=== PATIENT | female | born 1960 | race Two or more races ===

== ENCOUNTER 2017-02-09 13:20 | Emergency (ER) | payer SELFPAY ==
[~2017-02-09] VITALS: Ht 152.4 cm; Wt 84.8 kg
[~2017-02-09 13:20] MED LIST: GLIP5TAB10 PO; LIPITOR80 MG PO; LISI-338 PO
[2017-02-09] MEDS ORDERED: HYDROmorphone 2 MG/ML VIAL IV ONE (14:00)
[2017-02-09] MEDS ORDERED: KETOROLAC TROMETHAMINE 30 MG/ML INJ. IV ONE (14:00)
[2017-02-09 14:39] LABS: BASO # 0.1 x10^3/uL (0.0-0.2); BASO % 1 % (0-3); EOS % 3 % (0-3); HEMATOCRIT 39.5 % (36.0-47.0); HEMOGLOBIN 13.2 g/dL (12.0-15.5); LYMPH # 2.5 x10^3/uL (1.0-4.8); LYMPH % 23 % (24-48); MEAN CORPUSCULAR HEMOGLOBIN 30 pg (25-35); MEAN CORPUSCULAR HGB CONC 34 g/dL (31-37); MEAN CORPUSCULAR VOLUME 88 fL (79-100); MONO % 6 % (0-9); NEUT % 67 % (31-73); PLATELET COUNT 292 x10^3/uL (140-400); RED BLOOD COUNT 4.46 x10^6/uL (3.50-5.40); RED CELL DISTRIBUTION WIDTH 13.6 % (11.5-14.5); WHITE BLOOD COUNT 10.8 x10^3/uL (4.0-11.0)
--- NOTE | 2017-02-09 14:47 | RAD ---
CT of the head without contrast, 02/09/2017: History: Headache The ventricles are within normal limits in size. There is no shift of the midline structures. There is no evidence of acute intracranial hemorrhage or mass effect. The visualized paranasal sinuses are clear. IMPRESSION: No acute intracranial abnormality is detected. PQRS Compliance Statement: One or more of the following individualized dose reduction techniques were utilized for this examination: 1. Automated exposure control 2. Adjustment of the mA and/or kV according to patient size 3. Use of iterative reconstruction technique
[2017-02-09 15:17] LABS: CALCIUM 8.9 mg/dL (8.5-10.1); CREATININE 0.8 mg/dL (0.6-1.0); GFR 74.5; POTASSIUM 3.9 mmol/L (3.5-5.1)
[2017-02-09 15:24] LABS: ALBUMIN 3.8 g/dL (3.4-5.0); TOTAL BILIRUBIN 0.3 mg/dL (0.2-1.0); TOTAL PROTEIN 7.6 g/dL (6.4-8.2)
--- NOTE | 2017-02-09 17:16 | PHYS DOC ---
Past Medical History Past Medical History: Depression, Diabetes-Type II, High Cholesterol, Hypertension, Hypothyroid Past Surgical History: No Surgical History Alcohol Use: None Drug Use: None Adult General Chief Complaint Chief Complaint: HEADACHE HPI HPI Patient is a 56 year old female brought to the ED from [facility] with the complaint of severe headache since Sunday. Patient does not speak [place]an and history is using the [employer] phone. Patient complains of headache which began Sunday, it was mild at first but worsened throughout the day on Sunday. She woke up with it. That day, she went to the clinic to be seen, but they did not have any appointments. She went home and took a pain pill that she had in her dresser, she states it with diclofenac, it did not help. She has not taken anything else for the headache. She states the headache goes from the left side of the top of her head down over her left eye in the left side of her face, down to the left side of her neck. She has had headaches like this before but not this bad. She has ever been diagnosed with migraines or had any chronic headache treatment. The patient has had nausea but no vomiting. No fever or chills. PCP [facility] Review of Systems Review of Systems Constitutional: Denies fever or chills [] Eyes: Denies change in visual acuity, redness, or eye pain [] HENT: Denies nasal congestion or sore throat [] Respiratory: Denies cough or shortness of breath [] Cardiovascular: Denies chest pain GI: Denies abdominal pain, nausea, vomiting, bloody stools or diarrhea [] : Denies dysuria or hematuria [] Musculoskeletal: Denies back pain or joint pain [] Integument: Denies rash or skin lesions [] Neurologic: As in history of present illness Current Medications Current Medications Current Medications Medications (Trade) Dose Ordered Sig/Jeana Start Time Stop Time Status Last Admin Dose Admin Hydromorphone HCl (Dilaudid) 1 mg 1X ONCE 02/09/17 14:00 02/09/17 14:01 DC 02/09/17 14:21 1 MG Ketorolac Tromethamine (Toradol) 30 mg 1X ONCE 02/09/17 14:00 02/09/17 14:01 DC 02/09/17 14:20 30 MG Allergies Allergies Allergies Coded Allergies Type Severity Reaction Last Updated Verified No Known Drug Allergies 03/10/14 No Physical Exam Physical Exam Constitutional: Well developed, well nourished, slightly tearful, holding the left side of her head, alert, mentating normally HENT: Normocephalic, atraumatic, bilateral external ears normal, oropharynx moist, nose normal. [] Eyes: PERRLA, EOMI, conjunctiva normal, no discharge. [] Neck: Normal range of motion, no stridor. [] Cardiovascular:Heart rate regular rhythm, no murmur [] Lungs & Thorax: Bilateral breath sounds clear to auscultation [] Abdomen: Bowel sounds normal, soft, no tenderness, no masses, no pulsatile masses. [] Skin: Warm, dry, no erythema, no rash. [] Extremities: No tenderness, no cyanosis, no clubbing, ROM intact, no edema. [] Neurologic: Alert and oriented X 3, normal motor function, normal sensory function, no focal deficits noted. [] Current Patient Data Vital Signs Vital Signs Date Time Temp Pulse Resp B/P (MAP) Pulse Ox O2 Delivery O2 Flow Rate FiO2 02/09/17 17:44 76 18 164/70 (101) 99 Room Air 02/09/17 13:45 98.4 98.4 Lab Values Laboratory Tests Test 02/09/17 14:15 02/09/17 14:52 White Blood Count 10.8 x10^3/uL (4.0-11.0) Red Blood Count 4.46 x10^6/uL (3.50-5.40) Hemoglobin 13.2 g/dL (12.0-15.5) Hematocrit 39.5 % (36.0-47.0) Mean Corpuscular Volume 88 fL (79-100) Mean Corpuscular Hemoglobin 30 pg (25-35) Mean Corpuscular Hemoglobin Concent 34 g/dL (31-37) Red Cell Distribution Width 13.6 % (11.5-14.5) Platelet Count 292 x10^3/uL (140-400) Neutrophils (%) (Auto) 67 % (31-73) Lymphocytes (%) (Auto) 23 % (24-48) L Monocytes (%) (Auto) 6 % (0-9) Eosinophils (%) (Auto) 3 % (0-3) Basophils (%) (Auto) 1 % (0-3) Neutrophils # (Auto) 7.2 x10^3uL (1.8-7.7) Lymphocytes # (Auto) 2.5 x10^3/uL (1.0-4.8) Monocytes # (Auto) 0.6 x10^3/uL (0.0-1.1) Eosinophils # (Auto) 0.3 x10^3/uL (0.0-0.7) Basophils # (Auto) 0.1 x10^3/uL (0.0-0.2) Sodium Level 142 mmol/L (136-145) Potassium Level 3.9 mmol/L (3.5-5.1) Chloride Level 105 mmol/L (98-107) Carbon Dioxide Level 28 mmol/L (21-32) Anion Gap 9 (6-14) Blood Urea Nitrogen 15 mg/dL (7-20) Creatinine 0.8 mg/dL (0.6-1.0) Estimated GFR (Cockcroft-Gault) 74.5 BUN/Creatinine Ratio 19 (6-20) Glucose Level 191 mg/dL (70-99) H Calcium Level 8.9 mg/dL (8.5-10.1) Total Bilirubin 0.3 mg/dL (0.2-1.0) Aspartate Amino Transferase (AST) 19 U/L (15-37) Alanine Aminotransferase (ALT) 37 U/L (14-59) Alkaline Phosphatase 126 U/L (46-116) H Total Protein 7.6 g/dL (6.4-8.2) Albumin 3.8 g/dL (3.4-5.0) Albumin/Globulin Ratio 1.0 (1.0-1.7) Laboratory Tests 02/09/17 14:15 Laboratory Tests 02/09/17 14:52 EKG EKG [] Radiology/Procedures Radiology/Procedures CT scan of the head read by the radiologist no acute findings [] Course & Med Decision Making Course & Med Decision Making Pertinent Labs and Imaging studies reviewed. (See chart for details) 56-year-old female presents with a headache. The headache began 2 days ago as a mild headache, there was no acute or thunderclap onset. It increased throughout the day, it did not increase abruptly. The headache is on the left side of her head and face down into the left side of her neck. It is not associated with any neck stiffness or fever. The headache does seem suspicious for possible migraine etiology to me. I am not concerned about subarachnoid hemorrhage given the onset of the headache and the description of the headache. Patient was given IV fluids, 1 dose of IV pain medication, she stated her headache was a "one". CT scan of the head negative for acute findings. I believe the patient is stable for discharge with her driving. See instructions for plan. [] Dragon Disclaimer Dragon Disclaimer This electronic medical record was generated, in whole or in part, using a voice recognition dictation system. Departure Departure Impression: Primary Impression: Headache Disposition: 01 HOME, SELF-CARE Condition: STABLE Referrals: [facility] (PCP) Patient Instructions: General Headache Without Cause, [id number] Additional Instructions: Sometimes, a headache on one side of the head is a migraine headache. If you have this type of headache again, try taking [id number] Excedrin as soon as it starts. Drink plenty of fluids. Rest in a dark quiet room. Talk to your doctor if you have this type of headache again. NIKIA NAILS MD Feb 09, 2017 17:16
[2017-02-09 17:44] VITALS: BP 164/70
== END 2017-02-09 17:44 | disposition home or self-care (01) ==
LOC: ER 13:20
DX: R51 Headache (principal); E03.9 Hypothyroidism, unspecified; E11.9 Type 2 diabetes mellitus without complications; E78.00 Pure hypercholesterolemia, unspecified; F32.9 Major depressive disorder, single episode, unspecified; I10 Essential (primary) hypertension
CPT/HCPCS: 36415; 70450; 80053; 85027; 96374; 96375; 99285; J1170; J1885